=== PATIENT | female | born 1950 | race Caucasian/White ===

== ENCOUNTER 2019-08-11 17:38 | Inpatient (IN) | payer OTHER ==
[~2019-08-11] VITALS: Ht 154.9 cm; Wt 65.8 kg
[~2019-08-11 17:38] MED LIST: ASCO500 PO; ASPI81CH PO; ATOR10 PO; Amaryl2 MG PO; B Complex-Foli1 EACH PO; CALCIUM 600 +1 EAC7 PO; CEPH500 PO; Calcium-Magnes1 EAC5 PO; Coq-1030 MG PO; FURO40 PO; Ferrous Sulfat325 MG PO; GABA100 PO; LISI20 PO; MAGOXI400 PO; METF500 PO; METO25ER PO; MSM1000 MG PO; NITR.4SL SL; POTASSIUM GLUC500 MG PO; SODBIC650 PO; THERA-D2000 UNIT PO; TOCO400 PO
[2019-08-11 19:16] LABS: Albumin, Blood 2.1 g/dL (3.4-5.0); Albumin/Globulin Ratio 0.5 (0.8-1.8); Bilirubin, Total 0.6 mg/dL (0.1-1.0); Bun/Creatinine Ratio 6.8 (12.0-20.0); Calcium, Blood 6.1 mg/dL (8.5-10.1); Creatinine, Blood 3.38 mg/dL (0.40-1.00); Globulin, Blood 4.3 g/dL (2.2-4.0); Potassium, Blood 3.3 mmol/L (3.5-5.5); Total Protein, Blood 6.4 g/dL (6.4-8.2)
[2019-08-11 19:33] LABS: BASOPHILS ABSOLUTE AUTO 0.03 K/mm3 (0.00-0.23); BASOPHILS PERCENT AUTO 0 % (0-2); EOSINOPHILS ABSOLUTE AUTO 0.02 K/mm3 (0.00-0.68); EOSINOPHILS PERCENT AUTO 0 % (0-6); Hematocrit 32.5 % (33.0-51.0); Hemoglobin 10.7 g/dL (11.5-16.0); IMMATURE GRAN ABSOLUTE AUTO 0.06 K/mm3 (0.00-0.10); IMMATURE GRAN PERCENT AUTO 1 % (0-1); LYMPHOCYTES ABSOLUTE AUTO 1.63 K/mm3 (0.84-5.20); LYMPHOCYTES PERCENT AUTO 13 % (21-46); MONOCYTES ABSOLUTE AUTO 0.49 K/mm3 (0.16-1.47); MONOCYTES PERCENT AUTO 4 % (4-13); Mean Corpuscular HGB 28.6 pg (26.0-34.0); Mean Corpuscular HGB Conc 32.9 g/dL (31.5-36.5); Mean Corpuscular Volume 87 fL (80-100); Mean Platelet Volume 9.7 fL (9.1-12.4); NEUTROPHILS ABSOLUTE AUTO 10.73 K/mm3 (1.96-9.15); NEUTROPHILS PERCENT AUTO 83 % (41-73); Platelet Count 266 K/mm3 (150-400); RDW Coefficient Variation 14.7 % (11.7-14.2); RDW Standard Deviation 46.6 fL (35.1-46.3); Red Blood Cell Count 3.74 M/mm3 (3.80-5.20); White Blood Cell Count 12.96 K/mm3 (4.00-11.30)
[2019-08-11 19:40] LABS: Source, Urine Catheter
[2019-08-11 19:45] LABS: Bilirubin, Urine Neg (Neg); Blood, Urine 4+ (Neg); Glucose Qualitative, Urine 3+ (Neg); Ketones, Urine 1+ (Neg); Leukocyte Esterase, Urine 1+ (Neg); Nitrite, Urine Neg (Neg); Protein, Urine 3+ (Neg); Urobilinogen, Urine NORM (Normal)
[2019-08-11 20:02] LABS: Appearance, Urine Cloudy (Clear); Color, Urine Pale Yellow (P-Yellow)
[2019-08-11 20:03] LABS: Bacteria Many /hpf; Red Blood Cells, Urine 0-2 /hpf (0-2); Squamous Epithelial Cells Not Seen /hpf (Few)
[2019-08-11 20:15] LABS: Magnesium, Blood 1.2 mg/dL (1.6-2.4)
[2019-08-11 20:18] LABS: Phosphorus, Blood 2.1 mg/dL (2.5-4.9)
[2019-08-11 21:23] LABS: Automated BF RBC Count 0.002 M/mm3 (0-0)
--- NOTE | 2019-08-11 21:26 | NUR ---
PATIENT TRANSPORTED TO ER BY EMS WITH COMPLAINT OF ACUTE ABD PAIN AND DIARRHEA. NEPHROLOGY CONSULT FOR DR LEMA PLACED PATIENT CURRENTLY ON PERITONEAL DIALYSIS. EFFLUENT SAMPLE ORDERED BY DR LEMA FOR CULTURE, GRAM STAIN , CELL COUNT AND DIFFERENTIAL. PATIENT HAD RECENTLY BEEN AT [facility] UTILIZING [employer] EQUIPMENT A TRANSFER SET CHANGE WAS REQUIRED TO ALLOW USE OF [facility] EQUIPMENT HERE AT [facility]. PATIENT'S ABDOMEN VERY TENDER TO TOUCH. EFFLUENT OBTAINED WAS GROSSLY CLOUDY AND INDICATIVE OF SEVERE PERITONITIS. EFFLUENT SAMPLE WAS TRANSPORTED TO LAB FOR STAT CELL COUNT AND DIFFERENTIAL. DR LEMA TO RECIEVE RESULTS WHEN POSTED.
[2019-08-11 21:34] LABS: Body Fluid WBC Count 59440 /mm3 (0-999)
[2019-08-11 21:35] LABS: Appearance, Body Fluid Cloudy (Clear); Color, Body Fluid L Yellow (None-Yellow)
[2019-08-11 21:36] LABS: RBC Count, Body Fluid 2000 /mm3 (0-0)
[2019-08-11 21:43] LABS: Total Cell Count, Body Fluid 100
--- NOTE | 2019-08-12 00:16 | NUR ---
PATIENT TRANSFERED TO PCU ROOM 5. CYCLER SET UP FOR IN/ OUT FLUSHES. WHEN PRIME COMPLETE PATIENT AESEPTICALLY CONNECTED. PATIENT MONITORED FOR TOLEARANCE OF THERAPY AND NO ADVERSE ISSUES REPORTED. WHEN IN/OUT THERAPY COMPLETE, CYCLER SET UP STRUNG AND PRIMED FOR OVERNIGHT CCPD. PATIENT AGAIN CONNECTED AND THERAPY STARTED. EXIT SITE DRESSING INTACT AND SECURE SO DRESSING CHANGE DEFERRED UNTIL TOMORROW.
--- NOTE | 2019-08-12 00:48 | NUR ---
PATIENT ARRIVED TO PCU5 VIA GURNEY FROM ER, TRANSFERED TO BED VIA SLIDE SHEET, PATIENT COMPLAINED OF GENERALIZED PAIN WITH ANY MOVEMENT. PATIENT ALERT AND ORIENTED, CALL LIGHT WITHIN REACH AND USED APPROPRIATLY, NAUSEATED (MEDICATED PER EMAR/SEE EMAR). TRAY SETTER BACILIO IN ROOM AND HOOKING PATIENT UP TO PERITONEAL DIALYSIS, SKIN CDI, ATTENDS IN PLACE, BED LOW AND LOCKED. PATIENT ORIENTED TO ROOM, CALL LIGHT AND HOSPITAL POLICIES, ADMISSION COMPLETED
--- NOTE | 2019-08-12 04:24 | NUR ---
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 PATIENT VERY SENSETIVE STATING 'EVERYTHING HURTS ME RIGHT NOW, EVEN YOU BREATHING ON MY SKIN HURTS ME.' MD JUDGE NOTIFIED, ORDERS RECIEVED AND FAXED TO PHARMACY, PAIN MEDICATION GIVEN PER ORDERS (SEE EMAR). ALL OTHER VSS, CALL LIGHT WITHIN REACH, BED LOW AND LOCKED, PATIENT ON CONTINUOUS DIALYSIS.
[2019-08-12 04:42] LABS: Hematocrit 30.5 % (33.0-51.0); Hemoglobin 9.7 g/dL (11.5-16.0)
[2019-08-12 04:58] LABS: Albumin, Blood 1.7 g/dL (3.4-5.0); Anion Gap 10 mmol/L (6-16); Blood Urea Nitrogen 19 mg/dL (8-24); Bun/Creatinine Ratio 6.9 (12.0-20.0); CO2, Blood 23 mmol/L (21-32); Calcium, Blood 6.1 mg/dL (8.5-10.1); Chloride, Blood 102 mmol/L (98-108); Creatinine, Blood 2.74 mg/dL (0.40-1.00); Glomerular Filtration Rate 18 (60-); Glucose, Blood 409 mg/dL (70-99); Magnesium, Blood 1.8 mg/dL (1.6-2.4); Phosphorus, Blood 2.1 mg/dL (2.5-4.9); Potassium, Blood 2.9 mmol/L (3.5-5.5); Sodium, Blood 135 mmol/L (136-145)
--- NOTE | 2019-08-12 08:12 | NUR ---
PATIENT AWAKE , ALERT AND ORIENTED THIS AM. OVERNIGHT CCPD COMPLETE. LAST FILL WITH IP ANTIBIOTICS IN FOR MINIMUM 6 HOUR DWELL. PATIENT AESEPTICALLU DISCONNECTED AND CAPPED WITH NEW MINI-CAP. CATHETER SECURED FOR THE DAY. PATIENT REPORT DECREASED ABDOMINAL PAIN THIS MORNING. EFFLUENT SIGNIFICANTLY DECREASED CLOUDINESS, HOWEVER, NOT YET CLEAR. NO FIBRIN NOTED.
--- NOTE | 2019-08-12 12:23 | NUR ---
Patient is lying in bed and alert. Patient has , Heath, and a friend present in the room. They all make it clear up front that they are L.D.S. and have one of their own people coming to say a blessing over the patient. Patient tells me about her many medical issues, about her frustrations with her limitations following her stroke and about her current emotional struggles. Patient is very tearful. I listen empathically, reinforce helpful attitudes and practices, highlight patient's strength and ability to overcome and provide a calming presence and emotional support. I will continue to remain available to patient and family.
--- NOTE | 2019-08-12 18:42 | NUR ---
SHIFT SUMMARY PT A&O; CALM AND COOPERATIVE WITH CARE. PT RESTING IN BED DURING SHIFT; UP WITH ONE PERSON ASSIST TO BSC. TREMORS NOTED; PT STATES THAT NORMAL FOR HER. PT REPORTS "ALL OVER" PAIN, MEDCIATED x2 WITH TYLENOL WITH POSITIVE RESULTS. PT REPORTS NAUSEA; NO EMESIS NOTED; MEDICATED x1 WITH ZOFRAN. PT DENIES SOB, SPO2 >90%. PT VOIDING INTO BSC; NO BM T/O SHIFT. PT RECEIVING ANTIBIOTICS AND POTASSIUM AND MAGNENSIUM REPLACEMENTS. PERITONEAL DIALYSIS SET UP BY BLAINE RIBERA. VSS. NO OTHER ACUTE CHANGES NOTED DURING SHIFT. WILL CONTINUE TO MONITOR UNTIL REPORT GIVEN TO ONCOMING RN.
--- NOTE | 2019-08-12 19:15 | NUR ---
PATIENT AWAKE AND ALERT UPON ENTERING ROOM. CONTINUES TO HAVE COMPLAINT OF PATIENT WITH COMPLAINT OF GENERALIZED DISCOMFORT. PERITONEAL FLUID STILL CLOUDY. ABDOMEN HANDLE MAKER TO TOUCH. DUE TO MINIMAL UF LAST NIGHT RX CHANGE FRON 1.5% TO 2.5% DIANEAL BY DR LEMA. LAST FILL WITH ANTIBIOTICS IN 2L 1.5%. 1000U HEPARIN PER LITER ADDED TO ALL DIANEAL CYCLER STRUNG, PRIMED AND PROGRAMMED PER RX. WHEN PRIME COMPLETE OVERNIGHT CCPD STARTED. EFFLUENT SAMPLE OBTAINED FROM INITIAL DRAIN AND TRANSPORTED TO LAB. EXIT SITE CARE DONE. SITE CLEANSED WITH EXCEPT AND NEW STERILE DRESSING APPLIED. CATHETER SECURED IN PT PD BELT. PCU STAFF AWARE OF OVERNIGHT CCPD IN PROGRESS.
[2019-08-12 19:41] LABS: Body Fluid WBC Count 14210 /mm3 (0-999)
[2019-08-12 19:59] LABS: RBC Count, Body Fluid 782 /mm3 (0-0)
[2019-08-12 20:42] LABS: Color, Body Fluid L Yellow (None-Yellow); Total Cell Count, Body Fluid 100
[2019-08-12 20:43] LABS: Appearance, Body Fluid Cloudy (Clear)
[2019-08-13 04:14] LABS: BASOPHILS ABSOLUTE AUTO 0.02 K/mm3 (0.00-0.23); BASOPHILS PERCENT AUTO 0 % (0-2); Hematocrit 29.2 % (33.0-51.0); Hemoglobin 9.5 g/dL (11.5-16.0); LYMPHOCYTES ABSOLUTE AUTO 1.26 K/mm3 (0.84-5.20); LYMPHOCYTES PERCENT AUTO 26 % (21-46); MONOCYTES ABSOLUTE AUTO 0.22 K/mm3 (0.16-1.47); MONOCYTES PERCENT AUTO 5 % (4-13); Mean Corpuscular HGB 28.2 pg (26.0-34.0); Mean Corpuscular HGB Conc 32.5 g/dL (31.5-36.5); Mean Corpuscular Volume 87 fL (80-100); Mean Platelet Volume 9.8 fL (9.1-12.4); Platelet Count 294 K/mm3 (150-400); RDW Coefficient Variation 14.8 % (11.7-14.2); RDW Standard Deviation 47.4 fL (35.1-46.3); Red Blood Cell Count 3.37 M/mm3 (3.80-5.20); White Blood Cell Count 4.86 K/mm3 (4.00-11.30)
[2019-08-13 04:19] LABS: EOSINOPHILS ABSOLUTE AUTO 0.17 K/mm3 (0.00-0.68); EOSINOPHILS PERCENT AUTO 4 % (0-6); IMMATURE GRAN ABSOLUTE AUTO 0.01 K/mm3 (0.00-0.10); IMMATURE GRAN PERCENT AUTO 0 % (0-1); NEUTROPHILS ABSOLUTE AUTO 3.18 K/mm3 (1.96-9.15); NEUTROPHILS PERCENT AUTO 66 % (41-73)
[2019-08-13 04:33] LABS: Albumin, Blood 1.4 g/dL (3.4-5.0); Anion Gap 8 mmol/L (6-16); Blood Urea Nitrogen 13 mg/dL (8-24); Bun/Creatinine Ratio 5.5 (12.0-20.0); CO2, Blood 26 mmol/L (21-32); Calcium, Blood 6.5 mg/dL (8.5-10.1); Chloride, Blood 101 mmol/L (98-108); Creatinine, Blood 2.36 mg/dL (0.40-1.00); Glomerular Filtration Rate 22 (60-); Glucose, Blood 352 mg/dL (70-99); Magnesium, Blood 1.5 mg/dL (1.6-2.4); Potassium, Blood 2.7 mmol/L (3.5-5.5); Sodium, Blood 135 mmol/L (136-145); Vancomycin, Random 10.9 ug/mL
--- NOTE | 2019-08-13 06:19 | NUR ---
SHIFT SUMMARY NO ACUTE CHANGES NOTED. PT RECIEVED PERITONEAL DIALYSIS THROUGH THE NIGHT. SHE ICONTINUES TO C/O GENERALIZED,LOWER BACK PAIN, TYLENOL AND 1 DOSE 12.5 MCG IV FENTANYL WAS GIVEN PER PT REQUEST. KPAD WAS SET UP FOR THE PT TO USE TOLERATED. VSS,ON ROOM AIR, 1 ASSIST TO THE BSC. IN TO ASSESS PT THIS AM. CALL LIGHT IN REACH. [facility]
--- NOTE | 2019-08-13 08:30 | NUR ---
DIALYSIS-PD TOOK SUPPLIES TO PT'S ROOM. ID [id number], UF [id number]. BAG CLOUDY. PT VERY TENDER TO TOUCH. DC'ED TX PER PROTOCAL. SHE HAD THE LINES WRAPPED AROUND HR LEG. CONNECTED TUBE TO HR PD BINDER.
--- NOTE | 2019-08-13 20:05 | NUR ---
DIALYSIS-PD TOOK SOLUTION TO THE PHARMACY FOR HEPARIN AND ANTIBIOTICS. PT ALITTLE CONFUSED. MOVING AROUND ALOT IN BED. UP AND DOWN. SAYS SHE IS NAUSEATED. CONNECTED TO PD TX AT 1845. RECIEVING ANTIBIOTICS IN LAST FILL. WENT BACK TO THE ROOM FOR LOW DRAIN VOLUME. CLEARED. SPOKE TO RN. SITE CLEAR.
--- NOTE | 2019-08-13 21:02 | NUR ---
SHIFT SUMMARY PT A&Ox4. CALM AND COOPERATIVE WITH CARE. PT RESTING IN BED DURING SHIFT, UP TO BSC WITH 1 PERSON ASSIST. PT REPORT GENERALIZED PAIN AND RIGHT SIDED CHEST PAIN WITH INSPIRATION THIS AM, MEDICATED WITH TYLENOL x1 WITH POSITIVE RESULTS. DURING OT 0925, PT LEFT ARM FLACCID AND "FLOPPING" AROUND, THIS RN TO ROOM FOR ASSESSMENT, LEFT HAND NOT ABLE TO ENVIRONMENTAL LABORATORY TECHNICIAN INITIAL BUT WITHIN 5 MINUTES PT ABLE TO ENVIRONMENTAL LABORATORY TECHNICIAN, WEAKER THEN INITIAL ASSESSMENT @ 0830; NO OTHER CHANGES NOTE; NOTIIFED DR HAYS OF NEURO CHANGE AND RIGHT SIDED CHEST PAIN, DR PATINO PLACED NEW ORDERS FOR CT, TROPONINS AND EKG; ALL COMPLETED THIS AM. PT RECEIVING POTASSIUM CHLORIDE, MAGNESIUM SULFATE THIS AM AT DECREASED RATE DUE TO PT NOT TOLERATING. DR ASHFORD CALLED REGARDINF RESULTS OF ABD XRAY; CLARIFIED ORDER FOR POTASSIUM PHOSPHATE; NEW ORDERS TO CONTINUE TO GIVE. DR PATINO NOTIFIED OF ABD XRAY RESULT AND NEW ORDERS ENTERED FOR MRCP. PT REPORTS NAUSEA WITH EMESIS, APPROX 100CC OUT THIS SHIFT, MEDICATED WITH ZOFRAN x2. VSS. NO OTHER ACUTE CHANGES NOTED DURING SHIFT. REPORT GIVEN TO ONCOMING RN.
--- NOTE | 2019-08-13 22:00 | NUR ---
ASSUMED CARE Pt presents lying in bed with family at bedside, pt is alert and oriented, able to make needs known, moves all extremities independantly. Pt with right sided deficit d/t cva reported 1 wk ago. PD in process upon arrival. Karly, coal inspector at bedside with PD in place. Pt SBA to BSC. C/o R hip pain, heating pad placed, and egg crate on bed. See shift assessment for detailed assessment.
[2019-08-14 04:23] LABS: BASOPHILS ABSOLUTE AUTO 0.01 K/mm3 (0.00-0.23); BASOPHILS PERCENT AUTO 0 % (0-2); EOSINOPHILS ABSOLUTE AUTO 0.26 K/mm3 (0.00-0.68); EOSINOPHILS PERCENT AUTO 4 % (0-6); Hematocrit 29.8 % (33.0-51.0); Hemoglobin 9.6 g/dL (11.5-16.0); IMMATURE GRAN ABSOLUTE AUTO 0.02 K/mm3 (0.00-0.10); IMMATURE GRAN PERCENT AUTO 0 % (0-1); LYMPHOCYTES ABSOLUTE AUTO 2.37 K/mm3 (0.84-5.20); LYMPHOCYTES PERCENT AUTO 38 % (21-46); MONOCYTES ABSOLUTE AUTO 0.39 K/mm3 (0.16-1.47); MONOCYTES PERCENT AUTO 6 % (4-13); Mean Corpuscular HGB 27.9 pg (26.0-34.0); Mean Corpuscular HGB Conc 32.2 g/dL (31.5-36.5); Mean Corpuscular Volume 87 fL (80-100); Mean Platelet Volume 9.9 fL (9.1-12.4); NEUTROPHILS ABSOLUTE AUTO 3.12 K/mm3 (1.96-9.15); NEUTROPHILS PERCENT AUTO 51 % (41-73); Platelet Count 340 K/mm3 (150-400); RDW Coefficient Variation 14.8 % (11.7-14.2); RDW Standard Deviation 47.2 fL (35.1-46.3); Red Blood Cell Count 3.44 M/mm3 (3.80-5.20); White Blood Cell Count 6.17 K/mm3 (4.00-11.30)
[2019-08-14 04:42] LABS: Albumin, Blood 1.4 g/dL (3.4-5.0); Amylase, Blood 19 U/L (25-115); Anion Gap 6 mmol/L (6-16); Blood Urea Nitrogen 11 mg/dL (8-24); Bun/Creatinine Ratio 4.4 (12.0-20.0); CO2, Blood 28 mmol/L (21-32); Chloride, Blood 102 mmol/L (98-108); Glomerular Filtration Rate 20 (60-); Glucose, Blood 295 mg/dL (70-99); Magnesium, Blood 1.6 mg/dL (1.6-2.4); Phosphorus, Blood 2.2 mg/dL (2.5-4.9); Potassium, Blood 2.7 mmol/L (3.5-5.5); Sodium, Blood 136 mmol/L (136-145)
--- NOTE | 2019-08-14 05:33 | NUR ---
POTASSIUM 2.7; provider called, orders for KCl 40 meq IV x1
--- NOTE | 2019-08-14 07:00 | NUR ---
SHIFT SUMMARY Pt with restless night. Complaints of pain to the right hip with little relief with current pain medication; attempted egg crate and heating pad. Pt able to sleep approx 4 hours overnight. VSS. Potassium in process of replacement at this time. Pt alert and oriented but lethargic upon intitially waking. PD completed last night, abd soft, non tender. No BM overnight. Pt up with 1 to BSC for voiding, oliguria. Dr. Hernandez in this am with pt. Orders recieved. Per dr. Hernandez, discharge will likely be early next week.
--- NOTE | 2019-08-14 07:50 | NUR ---
AM NOTE... ASSUMED CARE OF PT APROX 0700, PT IS A&Ox4. PT WAS ADMITTED FOR PERITONITIS R/T PD. PT HAD PD TREATMENT DURING NOC SHIFT. PT STATES HER ABD "FEELS BETTER" MILD DISTENTION AND PAIN TO PALP, ABD IS SOFT IN ALL QUADRANTS. PT'S VS STABLE AT THIS TIME. PT DENIES CHEST PAIN/PRESSURE AT THIS TIME. PT C/O OF "SOME NAUSEA WITH EATING." PT HAS 1+ EDEMA TO HER BLE. PT IS ST IN THE 110'S PER OFFENSIVE COORDINATOR. L/S DIM T/O PT IS ON RA WITH O2 SATS >92%. PD FLUID LOOKS YELLOW AND SLIGHTLY CLOUDY, PER DIALYSIS NURSE THE CLOUDINESS HAS IMPROVED SINCE YESTERDAY. CALL LIGHT IN REACH, WILL CONTINUE TO MONITOR.
--- NOTE | 2019-08-14 08:56 | NUR ---
DIALYSIS-PD TOOK SUPPLIES INTO ROOM TO DC PT FROM PD TX. PT SEATING UP ON THE SIDE OF BED. LOOKS AND TALKING BETTER. SHE SEEMS MORE ORIENTED TODAY. CLEANED HER SITE HAS A VERY SMALL SCAB AT THE BASE OF HER TUBE. CLEANED, ANTIBIOTIC OINTMENT APPLIED AND REDRESSED. DOESN'T PLAN TO SHOWER TODAY. TX DC'ED PER PROTOCAL. ID [id number] ML. UF [id number] ML. BAG STILL ALITTLE CLOUDY. DR ASHFORD ORDERED THE SAME YESTERDAYS ORDERS. CONTINUING WITH ANTIBIOTICS.
[2019-08-14] MEDS ORDERED: SPIR25 PO (15:13)
--- NOTE | 2019-08-14 21:21 | NUR ---
DIALYSIS-PD TOOK SUPPLIES TO PT'S NEW ROOM 303. SETUP MACHINE. AT 2111 CONNECTED PT TO TX PER PROTOCAL. TALKED PT'S RN AND Sebastián PORTILLO,RN AND ALARMS. GAVE THEM MY CELL #. PT IS STILL RECIEVING ANTIBIOTICS IN LAST FILL.
--- NOTE | 2019-08-15 00:39 | NUR ---
PHYSICIAN COMMUNICATION CONTACTED THE VIDEO JOURNALIST PHYSICIAN AT 0002 TO INFORM HER THAT HER 30 UNITS OF LANTUS HAD BEEN HELD AT 2100 DUE TO HER BLOOD SUGAR BEING 80. I INFORMED HER THAT THE PATIENT WOULD BE HAVING AN ULTRASOUND IN THE MORNING FOR WHICH THEY WANT HER STOMACH EMPTY. BIENVENIDO SAID SHE WAS OKAY WITH IT BEING HELD AND POTENTIALLY STARTING IT UP AT HALF DOSE THE NEXT DAY.
[2019-08-15 05:44] LABS: BASOPHILS ABSOLUTE AUTO 0.02 K/mm3 (0.00-0.23); BASOPHILS PERCENT AUTO 0 % (0-2); EOSINOPHILS ABSOLUTE AUTO 0.36 K/mm3 (0.00-0.68); EOSINOPHILS PERCENT AUTO 6 % (0-6); Hematocrit 30.7 % (33.0-51.0); Hemoglobin 9.7 g/dL (11.5-16.0); IMMATURE GRAN ABSOLUTE AUTO 0.01 K/mm3 (0.00-0.10); IMMATURE GRAN PERCENT AUTO 0 % (0-1); LYMPHOCYTES ABSOLUTE AUTO 2.38 K/mm3 (0.84-5.20); LYMPHOCYTES PERCENT AUTO 40 % (21-46); MONOCYTES PERCENT AUTO 7 % (4-13); Mean Corpuscular HGB 28.5 pg (26.0-34.0); Mean Corpuscular HGB Conc 31.6 g/dL (31.5-36.5); Mean Platelet Volume 9.8 fL (9.1-12.4); NEUTROPHILS ABSOLUTE AUTO 2.82 K/mm3 (1.96-9.15); NEUTROPHILS PERCENT AUTO 47 % (41-73); Platelet Count 320 K/mm3 (150-400); RDW Coefficient Variation 15.2 % (11.7-14.2); RDW Standard Deviation 50.4 fL (35.1-46.3); White Blood Cell Count 5.99 K/mm3 (4.00-11.30)
[2019-08-15 05:49] LABS: Mean Corpuscular Volume 90 fL (80-100)
[2019-08-15 05:52] LABS: Albumin, Blood 1.3 g/dL (3.4-5.0); Anion Gap 6 mmol/L (6-16); Blood Urea Nitrogen 11 mg/dL (8-24); Bun/Creatinine Ratio 4.3 (12.0-20.0); CO2, Blood 25 mmol/L (21-32); Calcium, Blood 6.8 mg/dL (8.5-10.1); Chloride, Blood 105 mmol/L (98-108); Creatinine, Blood 2.58 mg/dL (0.40-1.00); Glomerular Filtration Rate 20 (60-); Glucose, Blood 407 mg/dL (70-99); Magnesium, Blood 1.5 mg/dL (1.6-2.4); Phosphorus, Blood 2.5 mg/dL (2.5-4.9); Potassium, Blood 3.1 mmol/L (3.5-5.5); Sodium, Blood 136 mmol/L (136-145)
--- NOTE | 2019-08-15 07:12 | NUR ---
SHIFT SUMMARY PATIENT RECEIVED PEROTINEAL DIALYSIS OVERNIGHT. SLEPT WELL WITH MINIMAL NEEDS. IV AND POWERGLIDE PATENT AND FLUSHED. BED IN LOWEST POSITION WITH WHEELS LOCKED. CALL LIGHT WITHIN REACH. REPORT GIVEN TO ONCOMING RN.
--- NOTE | 2019-08-15 09:12 | NUR ---
DIALYSIS-PD WENT INTO ROOM TO DC TX. MACHINE IN ALARM STATE. SAID UF LOW. 5 OF 5 DRAIN INCOMPLETE. PT HAD PUSHED THE STOP BUTTON TO QUIETEN AND DID NOT REPORT IT TO THE RN. PUT IN BYPASS AND STARTED LAST FILL. ASKED RN TO NOTIFY ME WHEN COMPLETED. AT 0900 DC'ED TX PER PROTOCAL. UF [id number]. ID [id number]. DR ASHFORD WANTS TO ONLY USE EDU WONG. DC'ED RAYNA.
--- NOTE | 2019-08-15 15:32 | NUR ---
SHIFT SUMMARY PT IS A/O X 4 BUT DOES APPEAR TO BE MILDLY CONFUSED AT TIMES AND HAS GENERAL MALAISE. SHE DID C/O OF NAUSEA X 1 AND MEDS WERE GIVEN ORDERED AND REPORTED TO BE EFFECTIVE. PERITONEAL DIALYSIS WAS COMPLETED AT THE BEDSIDE THIS MORNING AND THE DIALYSIS NURSE CAME AND DISCONNECTED THE MACHINE AND PER DR ASHFORD SHE IS SCHEDULED TO HAVE IT AGAIN TONIGHT. ABDOMINAL ULTRA SOUND WAS COMPLETED THIS MORNING ORDERED. IV FLUIDS/MEDS INFUSED VIA POWERGLIDE TO RUE, THE POWERGLIDE IS POSITIONAL AND THE PT NEEDS REMINDERS TO HELP KEEP HER ARM STRAIGHT FOR THE INFUSION BUT BOTH LUMENS FLUSH WITH NO RESISTANCE. DR TELLO ORDERED A CT WITH CONTRAST THIS AFTERNOON WHICH WAS COMPLETED AND THE DOCTOR CAME TO TALK ABOUT THE RESULTS AT THE BEDSIDE WITH THE PT. PT SON IS AT THE BEDSIDE NOW. PT WORKED WITH BOTH THERAPIES TODAY. PT USES THE BEDSIDE COMMODE FOR TOILETING AND HAS BEEN CONT TODAY. PT IS ABLE TO MAKE HER NEEDS KNOWN AND CALLS FOR HELP WHEN NEEDED.
--- NOTE | 2019-08-15 19:25 | NUR ---
PATIENT RESTING IN BED WITH PERITONEAL DIALYSIS RUNNING. SHE IS AOX4, DENIES PAIN AT THIS TIME. CHECKED DIALYSIS SITE AND THE PATIENT SAYS ITS TENDER TO TOUCH. RESPIRATIONS EVEN AND UNLABORED. MO DISTRESS NOTED. BED LOW AND LOCKED AND CALL VELIZ WITHIN REACH.
--- NOTE | 2019-08-15 20:31 | NUR ---
DIALYSIS-PD TOOK SUPPLIES TO PHARMACY FOR MED FILL. TOOK SUPPLIES UP TO PT'S ROOM. SHE WAS EATING DINNER. SET UP THE MACHINE. SPOKE TO THE RN. CONNECTED PT TO HER TX. AFTER SEEING ANOTHER PT IN THE ER . I WENT BACK AND MADE SURE THE NOC RN KNEW THAT THE PT WOULD STOP THE MACHINE WHEN IT ALARMS. WALKED HER THROUGH SEVERAL ALARMS AND GAVE HER MY CELL NUMBER.
[2019-08-16 05:33] LABS: BASOPHILS ABSOLUTE AUTO 0.02 K/mm3 (0.00-0.23); BASOPHILS PERCENT AUTO 0 % (0-2); EOSINOPHILS ABSOLUTE AUTO 0.37 K/mm3 (0.00-0.68); EOSINOPHILS PERCENT AUTO 6 % (0-6); Hematocrit 29.4 % (33.0-51.0); Hemoglobin 9.4 g/dL (11.5-16.0); IMMATURE GRAN ABSOLUTE AUTO 0.01 K/mm3 (0.00-0.10); IMMATURE GRAN PERCENT AUTO 0 % (0-1); LYMPHOCYTES ABSOLUTE AUTO 2.35 K/mm3 (0.84-5.20); LYMPHOCYTES PERCENT AUTO 39 % (21-46); MONOCYTES ABSOLUTE AUTO 0.44 K/mm3 (0.16-1.47); MONOCYTES PERCENT AUTO 7 % (4-13); Mean Corpuscular HGB 28.1 pg (26.0-34.0); Mean Corpuscular Volume 88 fL (80-100); Mean Platelet Volume 9.6 fL (9.1-12.4); NEUTROPHILS ABSOLUTE AUTO 2.81 K/mm3 (1.96-9.15); NEUTROPHILS PERCENT AUTO 47 % (41-73); Platelet Count 347 K/mm3 (150-400); RDW Coefficient Variation 15.2 % (11.7-14.2); RDW Standard Deviation 48.8 fL (35.1-46.3); Red Blood Cell Count 3.34 M/mm3 (3.80-5.20)
--- NOTE | 2019-08-16 05:34 | NUR ---
EOS: PATIENT RECEIVING PERITONEAL DIALYSIS THIS SHIFT. SPOKE WITH COURT PERLA SALES DEPARTMENT CLERK AT THE BEGINNING OF THE SHIFT. PT OOB TO BSC NEEDED WITH X1 ASSIST. PT HAS BEEN PLEASANT AND COOPERATIVE THO SHE MAY BE APPEAR SOMEWHAT XPRESSIONLESS. .
[2019-08-16 05:59] LABS: Albumin, Blood 1.3 g/dL (3.4-5.0); Anion Gap 7 mmol/L (6-16); Blood Urea Nitrogen 8 mg/dL (8-24); Bun/Creatinine Ratio 3.2 (12.0-20.0); CO2, Blood 26 mmol/L (21-32); Chloride, Blood 103 mmol/L (98-108); Creatinine, Blood 2.53 mg/dL (0.40-1.00); Glomerular Filtration Rate 20 (60-); Glucose, Blood 407 mg/dL (70-99); Magnesium, Blood 1.6 mg/dL (1.6-2.4); Phosphorus, Blood 2.1 mg/dL (2.5-4.9); Potassium, Blood 3.3 mmol/L (3.5-5.5); Sodium, Blood 136 mmol/L (136-145)
--- NOTE | 2019-08-16 07:38 | NUR ---
PATIENT IN BED, AWAKE, ORIENTEDAND IN NO APPARENT OR REPORTED DISTRESS. PATIENT VOICING DESIRE TO GO HOME. EFLUENT ONLY VERY SLIGHTLY CLOUDY THIS MORNING. NO ABD PAIN REPORTED. PATIENT AESEPTICALLY DISCONNECTED AND CATHETER CAPPED WITH NEW MINI-CAP. CATHETER SECURED IN PT'S PD BELT. CYCLER STRIPPED AND CLEANED. DR ASHFORD CONSULTED FOR ORDERS / PLAN OF CARE.
--- NOTE | 2019-08-16 18:02 | NUR ---
PATIENT AWAKE / ALERT / ORIENTED THIS EVENING BUT WITH RENEWED COMPLAINT OF ABDOMINAL PAIN. PATIENT TAKEN TO IMAGING FOR ABD XRAY WHILE DIALYSIS NURSE SETTING UP CYCLER FOR OVERNIGHT CCPD. MACHINE PROGRAMMED PER RX. EFFLUENT SAMPLE OBTAINED FOR CELL COUNT. PATIENT MONITORED T/O INITIAL DRAIN AND FILL #1 TO ASSESS TOLERANCE OF THERAPY. NO NEW COMPLAINTS. EXIT SITE CARE DONE. STILL SOME REDNESS NOTED AT EXIT. NEW STERILE DRESSING APPLIED WITH ONE STRAIN RELIEF TO MINIMIZE "SAWING" MOTION. MED FLOOR STAFF AWARE OF OVERNIGHT THERAPY IN PROGRESS.
[2019-08-16 18:05] LABS: Automated BF WBC Count 0.283 K/mm3 (0-999); Body Fluid WBC Count 283 /mm3 (0-999)
[2019-08-16 18:37] LABS: RBC Count, Body Fluid 3 /mm3 (0-0)
[2019-08-16 19:15] LABS: Total Cell Count, Body Fluid 100
[2019-08-16 19:16] LABS: Color, Body Fluid No color (None-Yellow)
[2019-08-16 19:17] LABS: Appearance, Body Fluid Clear (Clear)
--- NOTE | 2019-08-16 19:32 | NUR ---
SHIFT SUMMARY PT AXO, COOPERATIVE WITH CARE THOUGH IRRITABLE. PT COMPLAINED OF PAIN, MEDICATED PER EMAR. PT CONTINUED TO COMPLAIN OF PAIN 04/24. DR TELLO NOTIFIED AND IN ROOM TO ASSESS PT. PT HAD BM AT THAT TIME. SHE ALSO BEGAN HAVING LEFT UPPER EXTREMITY WEAKNESS. PUPILS WERE EQUIL AND REACTIVE TO LIGHT. SILK SCREEN PAINTER ON L HAND WAS STRONG BUT DELAYED COMPARED TO RUE. NEW ORDERS INTIATED. VSS. BED IN LOW POSITION, CALL LIGHT WITHIN REACH. SEE IMAGING.
--- NOTE | 2019-08-17 00:21 | NUR ---
pt vomited her bedtime pills back up; will notify on-call hospitalist with next call; gave IV Zofran per emar. meds were visible in what looked like phlem and water, approx 30 ml
[2019-08-17 04:55] LABS: BASOPHILS ABSOLUTE AUTO 0.02 K/mm3 (0.00-0.23); BASOPHILS PERCENT AUTO 0 % (0-2); EOSINOPHILS PERCENT AUTO 1 % (0-6); Hematocrit 36.1 % (33.0-51.0); Hemoglobin 11.5 g/dL (11.5-16.0); IMMATURE GRAN ABSOLUTE AUTO 0.03 K/mm3 (0.00-0.10); IMMATURE GRAN PERCENT AUTO 0 % (0-1); LYMPHOCYTES ABSOLUTE AUTO 2.47 K/mm3 (0.84-5.20); LYMPHOCYTES PERCENT AUTO 20 % (21-46); MONOCYTES ABSOLUTE AUTO 0.65 K/mm3 (0.16-1.47); MONOCYTES PERCENT AUTO 5 % (4-13); Mean Corpuscular HGB 28.4 pg (26.0-34.0); Mean Corpuscular HGB Conc 31.9 g/dL (31.5-36.5); Mean Corpuscular Volume 89 fL (80-100); Mean Platelet Volume 9.8 fL (9.1-12.4); NEUTROPHILS ABSOLUTE AUTO 9.19 K/mm3 (1.96-9.15); NEUTROPHILS PERCENT AUTO 74 % (41-73); Platelet Count 452 K/mm3 (150-400); RDW Coefficient Variation 15.3 % (11.7-14.2); Red Blood Cell Count 4.05 M/mm3 (3.80-5.20); White Blood Cell Count 12.46 K/mm3 (4.00-11.30)
[2019-08-17 05:34] LABS: Albumin, Blood 1.6 g/dL (3.4-5.0); Anion Gap 11 mmol/L (6-16); Blood Urea Nitrogen 10 mg/dL (8-24); Bun/Creatinine Ratio 3.5 (12.0-20.0); CO2, Blood 23 mmol/L (21-32); Calcium, Blood 7.5 mg/dL (8.5-10.1); Chloride, Blood 101 mmol/L (98-108); Creatinine, Blood 2.87 mg/dL (0.40-1.00); Glomerular Filtration Rate 17 (60-); Glucose, Blood 431 mg/dL (70-99); Phosphorus, Blood 2.9 mg/dL (2.5-4.9); Sodium, Blood 135 mmol/L (136-145)
--- NOTE | 2019-08-17 07:37 | NUR ---
EOS: PATIENT RECEVED AN EXTRA DOSE OF ZAOFRAN THIS MORNING. HER NAUSEA SEEMS POSITIONAL. PATINT CONTINUES TO VOMIT SMALL AMOUNTS OF FLUIDS. IS AWARE.
--- NOTE | 2019-08-17 07:45 | NUR ---
PATIENT AWAKE / ALERT AND ORIENTED THIS AM. PT REPORTS SLEEPING POORLY AND REQUEST PAIN MEDICATION FOR LINGERING ABDOMINAL PAIN. CELL COUNT ON PD EFLUENT OBTAINED LAST NIGHT SHOWS MARKED CLEARING OF BACTERIAL COLINIZATION OF PERITONEAUM. EFFLUENT CLEAR / COLE THIS AM. OVERNIGHT CCPD COMPLETE. PATIENT AESEPTICALLY DISCONNECTED AND NEW MINI-CAP INSTALLED ON CATHETER. CYCLER STRIPPED AND CLEANED. DR ASHFORD CONSULTED FOR NEW ORDERS / PLAN OF CARE.
--- NOTE | 2019-08-17 17:40 | NUR ---
PATIENT AWAKE , ALERT AND ORIENTED THIS AFTERNOON. SITTING IN RECLINER CHAIR AT BEDSIDE. PT REPORTS NO APPETITE FOR SOLID FOOD AND CONTINUES WITH SOME NAUSEA AND OCCASSIONAL RETCHING. NO OBSERVED EMESIS WHILE THIS NURSE PRESENT IN ROOM. REQUEST FOR ICE WATER PROVIDED. CYCLER SET UP, PRIMED AND PROGRAMMED PER RX. PATIENT AESEPTICALLY CONNECTED AND THERAPY STARTED. INITIAL DRAIN AND FILL #1 OBSERVED TO ASSESS PATIENT TOLERANCE. NO ADDITIONAL DISCOMFORT REPORTED. EXIT SITE CARE DONE. REDNESS IMPROVED. ABD SUGAR CANE FARM MANAGER TO TOUCH. NEW STERLE DRESSING APPLIED WITH ONE STRAIN RELIEF. MED FLOOR STAFF AWARE OF OVERNIGHT CCPD THERAPY IN PROGRESS.
--- NOTE | 2019-08-17 19:18 | NUR ---
SHIFT SUMMARY PT AXO, COOPERATIVE WITH CARE. PT MEDICATED FOR PAIN PER EMAR. PT CONTINUED TO COMPLAIN OF PAIN BUT APPEARED TO REST COMFORTABLY AT TIMES THROUGHOUT THE SHIFT. PT ALSO COMPLAINED OF NV, EMESIS X3 THIS SHIFT. IMPROVED WITH REGLAN. PT CONTINUES TO HAVE POOR APPETITE. BED IN LOW POSITION, CALL LIGHT WITHIN REACH. PT UP TO RECLINER THROUGHOUT THE SHIFT. IV PATENT AND INFUSING PER EMAR.
--- NOTE | 2019-08-18 02:19 | NUR ---
ASSUMED CARE OF PT TONIGHT. PT SLEEPING WHEN UNDISTURBED. RECEIVING PERITONEAL DIALYSIS. IV FLUIDS/PROTONIX INFUSING.
[2019-08-18 05:39] LABS: BASOPHILS ABSOLUTE AUTO 0.04 K/mm3 (0.00-0.23); BASOPHILS PERCENT AUTO 0 % (0-2); EOSINOPHILS ABSOLUTE AUTO 0.51 K/mm3 (0.00-0.68); EOSINOPHILS PERCENT AUTO 3 % (0-6); Hematocrit 31.3 % (33.0-51.0); Hemoglobin 10.1 g/dL (11.5-16.0); IMMATURE GRAN ABSOLUTE AUTO 0.09 K/mm3 (0.00-0.10); IMMATURE GRAN PERCENT AUTO 1 % (0-1); LYMPHOCYTES ABSOLUTE AUTO 3.08 K/mm3 (0.84-5.20); LYMPHOCYTES PERCENT AUTO 19 % (21-46); MONOCYTES ABSOLUTE AUTO 0.98 K/mm3 (0.16-1.47); MONOCYTES PERCENT AUTO 6 % (4-13); Mean Corpuscular HGB 28.7 pg (26.0-34.0); Mean Corpuscular HGB Conc 32.3 g/dL (31.5-36.5); Mean Corpuscular Volume 89 fL (80-100); Mean Platelet Volume 9.6 fL (9.1-12.4); NEUTROPHILS ABSOLUTE AUTO 11.33 K/mm3 (1.96-9.15); NEUTROPHILS PERCENT AUTO 71 % (41-73); Platelet Count 370 K/mm3 (150-400); RDW Coefficient Variation 15.5 % (11.7-14.2); RDW Standard Deviation 49.5 fL (35.1-46.3); Red Blood Cell Count 3.52 M/mm3 (3.80-5.20); White Blood Cell Count 16.03 K/mm3 (4.00-11.30)
[2019-08-18 05:59] LABS: Albumin, Blood 1.4 g/dL (3.4-5.0); Anion Gap 7 mmol/L (6-16); Blood Urea Nitrogen 12 mg/dL (8-24); Bun/Creatinine Ratio 3.9 (12.0-20.0); CO2, Blood 27 mmol/L (21-32); Chloride, Blood 104 mmol/L (98-108); Creatinine, Blood 3.06 mg/dL (0.40-1.00); Glomerular Filtration Rate 16 (60-); Glucose, Blood 291 mg/dL (70-99); Potassium, Blood 3.2 mmol/L (3.5-5.5); Sodium, Blood 138 mmol/L (136-145)
--- NOTE | 2019-08-18 12:05 | NUR ---
08/18/2019 Patient gave this nursing support worker permission to assist in care tomorrow 08/19/2019.
--- NOTE | 2019-08-18 14:48 | NUR ---
DIALYSIS-PD PT'S SOLUTION IMPROVED SLIGHTLY CLOUDY. TX DC'ED PER PROTOCAL. SITE CLEAR. ID [id number] ML. UF [id number] ML.
--- NOTE | 2019-08-18 15:37 | NUR ---
08/18/19 1537 SONIYA TANG History, Chart, Medications and Allergies reviewed before start of procedure.3-LEAD EKG REVIEWED WITH PHYSICIAN PRIOR TO START OF PROCEDURE.O2 VIA N/C INTACT THROUGHOUT SEDATION/PROCEDURE. MONITOR INTACT WITH CONTINUOUS PULSE OXIMETRY AND INTERMITTENT BP.MAC WITH DR. NEELY.
--- NOTE | 2019-08-18 16:41 | NUR ---
PT RETURNED FROM EGD PT RETURNED FROM EGD. PT VSS. ALERT & ORIENTED. AT BEDSIDE. DENIES NEED AT THIS TIME.
--- NOTE | 2019-08-18 18:26 | NUR ---
SHIFT SUMMARY PT HAD EGD DONE TODAY. BIOPSIES AND DILATION COMPLETED DURING PROCEDURE. PT ADVANCED TO FULL LIQUID FOR DINNER. PROTONIX CHANGED TO PO FORM. PT COMPLETED DIALYSIS EARLY THIS AM. NO OTHER CHANGES IN ASSESSMENT AT THIS TIME. VSS. WILL CONTNUE TO MONITOR UNTIL TURNOVER IS COMPLETE.
--- NOTE | 2019-08-18 20:51 | NUR ---
DIALYSIS-PD COLLECTED MEDICATED DIANEAL BAGS FROM PHARMACY. PRIMED MACHINE. CONNECTED PT TO TX PER PROTOCAL. PT C/O BACK, GIVEN PAIN NOT LONG AGO. PULLED UP IN BED. SPOKEN TO RN ABOUT ALARMS.GAVE HER MY CELL NUMBER.
--- NOTE | 2019-08-19 04:45 | NUR ---
SHIFT SUMMARY ADMITTED FOR PERITONITIS. FULL CODE. PERITONEAL DIALYSIS THROUGHOUT SHIFT, NO ALARMS SOUNDED - TOREY IS FOLLOWING. PT TOLERATED DIALYSIS WELL. POWERGLIDE IN JESSIE DRAWS WELL FOR LABS. FISTULA IN LFT FOREARM - NO BP'S OR LABS IN LEFT ARM. EGD PERFORMED YESTERDAY, DR LOMELI ROUNDED ON PT TO SHOW HER A LARGE DIVERTICULI WITH A SIGNIFICANT AMOUNT OF FOOD MATTER/BILE EXPELLED FROM DIVERTICULI POCKET DURING EGD. HE INFORMED HER OF THE DILATION HE PERFORMED WELL. RA, FULL LIQUID DIET (APPETITE IS STILL POOR), A&O X4, ACHS , LOW SS. LUNGS ARE CLEAR. TELEMETRY IS MONITORING: TACH @ 100 BPM. 1 ASSIST W/FWW. LIVES W/. MILD NAUSEA ONE TIME DURING SHIFT. HX: CKD, CAD, DM2, CABG, CVA, DIVERTICULITIS.
[2019-08-19 05:39] LABS: BASOPHILS ABSOLUTE AUTO 0.03 K/mm3 (0.00-0.23); BASOPHILS PERCENT AUTO 0 % (0-2); EOSINOPHILS ABSOLUTE AUTO 0.56 K/mm3 (0.00-0.68); EOSINOPHILS PERCENT AUTO 4 % (0-6); Hematocrit 30.2 % (33.0-51.0); Hemoglobin 9.3 g/dL (11.5-16.0); IMMATURE GRAN ABSOLUTE AUTO 0.06 K/mm3 (0.00-0.10); IMMATURE GRAN PERCENT AUTO 0 % (0-1); LYMPHOCYTES ABSOLUTE AUTO 3.01 K/mm3 (0.84-5.20); LYMPHOCYTES PERCENT AUTO 22 % (21-46); MONOCYTES ABSOLUTE AUTO 0.88 K/mm3 (0.16-1.47); MONOCYTES PERCENT AUTO 7 % (4-13); Mean Corpuscular HGB 27.9 pg (26.0-34.0); Mean Corpuscular HGB Conc 30.8 g/dL (31.5-36.5); Mean Corpuscular Volume 91 fL (80-100); Mean Platelet Volume 10.2 fL (9.1-12.4); NEUTROPHILS ABSOLUTE AUTO 8.98 K/mm3 (1.96-9.15); NEUTROPHILS PERCENT AUTO 67 % (41-73); Platelet Count 346 K/mm3 (150-400); RDW Coefficient Variation 15.8 % (11.7-14.2); RDW Standard Deviation 52.1 fL (35.1-46.3); Red Blood Cell Count 3.33 M/mm3 (3.80-5.20); White Blood Cell Count 13.52 K/mm3 (4.00-11.30)
[2019-08-19 06:05] LABS: Magnesium, Blood 1.2 mg/dL (1.6-2.4)
[2019-08-19 06:08] LABS: Albumin, Blood 1.3 g/dL (3.4-5.0); Albumin/Globulin Ratio 0.4 (0.8-1.8); Alk Phos 77 U/L (50-136); Anion Gap 6 mmol/L (6-16); Aspartate Aminotrans (AST/SGOT 8 U/L (12-37); Bilirubin, Total 0.5 mg/dL (0.1-1.0); Blood Urea Nitrogen 14 mg/dL (8-24); Bun/Creatinine Ratio 4.6 (12.0-20.0); CO2, Blood 26 mmol/L (21-32); Calcium, Blood 6.5 mg/dL (8.5-10.1); Chloride, Blood 105 mmol/L (98-108); Creatinine, Blood 3.06 mg/dL (0.40-1.00); Globulin, Blood 3.7 g/dL (2.2-4.0); Glomerular Filtration Rate 16 (60-); Glucose, Blood 239 mg/dL (70-99); Phosphorus, Blood 1.9 mg/dL (2.5-4.9); Potassium, Blood 2.9 mmol/L (3.5-5.5); Sodium, Blood 137 mmol/L (136-145)
[2019-08-19 06:22] LABS: Alanine Aminotransfer (ALT/SGP <6 U/L (12-78)
--- NOTE | 2019-08-19 07:37 | NUR ---
POTASSIUM 2.9 PT AM POTASSIUM IS 2.9. DR. JACOBS NOTIFIED. STATES HE WILL PLACE ORDERS. WILL CONTINUE TO MONITOR.
--- NOTE | 2019-08-19 17:31 | NUR ---
SHIFT SUMMARY PT STATES SHE IS "FEELING BETTER". DENIES NAUSEA & VOMITING THIS SHIFT. MEDIATED PRIOR TO MEALS. PT TO HAD PD TONIGHT. PT UP TO CHAIR TWICE THIS SHIFT. GOALS TO INCREASE APPETITE AND MOBILITY. PT CONTINUES TO HAVE A POOR APPETITE. NE INSULIN GIVEN THIS SHIFT DUE TO POOR APPETITE. NO OTHER CHANGES IN ASSESSMENT AT THIS TIME. VSS. WILL CONTINUE TO MONITOR UNTIL TURNOVER IS COMPLETE.
--- NOTE | 2019-08-19 21:13 | NUR ---
DIALYSIS-PD THIS AM I DISCONNECTED THE PT FROM HER PD PER PROTOCAL. ID [id number]. UF [id number]. AFFLUENT LOOKED BETTER, LESS CLOUDY. PT LOOKED BETTER THAN THE NIGHT BEFORE. 2014 CONNECTED PT TO THE SAME RX LAST NIGHT PER PROTOCAL. HAD ANCEF IN THE LAST FILL. DRESSING CHANGE DONE PER PROTOCAL. SITE HAD NO REDNESS THIS TIME. NO DRAINAGE. WNL. STILL VERY JUMPY WHEN HER ABD TOUCHED, SAYING OUCH. TALKED TO THE RN IN CHARGE OF PT TONIGHT ABOUT ALARMS.
--- NOTE | 2019-08-20 04:08 | NUR ---
C APPLICATION DEVELOPER SUMMARY PT DROWSY AT BEGINNING OF SHIFT. EASILY AROUSABLE BUT ALSO FALLS BACK TO ASLEEP EASILY. PT DENIED MEDS AT BEGINNING OF SHIFT. SLEPT WELL THROUGHOUT THE NIGHT. CALLS APPROPRIATELY AND SEEMED MORE AWAKE WHEN SHE USED THE CALL LIGHT. SHE WAS ABLE TO CONVERSE WITH ME MORE WHEN SHE WOKE UP. NO COMPLAINTS OF PAIN, NAUSEA OR DIZZINESS. VSS, NO ACUTE CHANGES. WILL CONTINUE TO MONITOR.
[2019-08-20 06:15] LABS: BASOPHILS ABSOLUTE AUTO 0.03 K/mm3 (0.00-0.23); BASOPHILS PERCENT AUTO 0 % (0-2); EOSINOPHILS ABSOLUTE AUTO 0.51 K/mm3 (0.00-0.68); EOSINOPHILS PERCENT AUTO 5 % (0-6); Hematocrit 29.1 % (33.0-51.0); IMMATURE GRAN ABSOLUTE AUTO 0.04 K/mm3 (0.00-0.10); IMMATURE GRAN PERCENT AUTO 0 % (0-1); LYMPHOCYTES ABSOLUTE AUTO 2.72 K/mm3 (0.84-5.20); LYMPHOCYTES PERCENT AUTO 25 % (21-46); MONOCYTES ABSOLUTE AUTO 0.72 K/mm3 (0.16-1.47); MONOCYTES PERCENT AUTO 7 % (4-13); Mean Corpuscular HGB Conc 30.9 g/dL (31.5-36.5); Mean Corpuscular Volume 91 fL (80-100); NEUTROPHILS ABSOLUTE AUTO 6.89 K/mm3 (1.96-9.15); NEUTROPHILS PERCENT AUTO 63 % (41-73); Platelet Count 286 K/mm3 (150-400); RDW Coefficient Variation 15.7 % (11.7-14.2); RDW Standard Deviation 51.9 fL (35.1-46.3); Red Blood Cell Count 3.21 M/mm3 (3.80-5.20); White Blood Cell Count 10.91 K/mm3 (4.00-11.30)
[2019-08-20 06:29] LABS: Albumin, Blood 1.2 g/dL (3.4-5.0); Anion Gap 1 mmol/L (6-16); Blood Urea Nitrogen 14 mg/dL (8-24); Bun/Creatinine Ratio 4.8 (12.0-20.0); CO2, Blood 29 mmol/L (21-32); Calcium, Blood 6.7 mg/dL (8.5-10.1); Chloride, Blood 106 mmol/L (98-108); Creatinine, Blood 2.93 mg/dL (0.40-1.00); Glomerular Filtration Rate 17 (60-); Glucose, Blood 258 mg/dL (70-99); Magnesium, Blood 1.4 mg/dL (1.6-2.4); Potassium, Blood 3.3 mmol/L (3.5-5.5); Sodium, Blood 136 mmol/L (136-145)
--- NOTE | 2019-08-20 07:13 | NUR ---
Pt. gave student approval for care at 0710 08/20/2019 for 08/20/2019.
--- NOTE | 2019-08-20 18:31 | NUR ---
SHIFT SUMMARY PT UP TO CHAIR FOR ALL MEALS TODAY. MINIMAL ASSIST AMBULATION TO BATHROOM. PD AT NIGHT. PG DRESSING CHANGED. PT RECIEVED KCL, MAG, AND K PHOS IV THIS SHIFT. NO OTHER CHANGES IN ASSESSMENT AT THIS TIME. VSS. WILL CONTINUE TO MONITOR UNTIL TURNOVER IS COMPLETE.
--- NOTE | 2019-08-20 20:11 | NUR ---
DIALYSIS-PD THIS AM AT 0800 TOOK SUPPLIES TO ROOM TO DC PT FROM TX. PT DC'ED PER PROTOCAL. SITE CLEAR FLUID CLEAR. ID. [id number]. UF [id number]. NO C/O FROM PT. 1999 PT CONNECTED TO PD TX. PT STATES SHE IS GOING HOME TOMORROW. UPSET THAT SHE MAY HAVE TO GO ON HD FOR A SHORT TIME WHILE GETS TRAINED. STILL GETTING ANCEF IN LAST FILL.
--- NOTE | 2019-08-21 04:42 | NUR ---
SHIFT SUMMARY: TACHYCARDIC AT 103-104 TONIGHT. A/OX3. MAKES NEEDS KNOWN. RECEIVED PERITONEAL DIALYSIS THROUGH THE NIGHT. DRESSING AT ABDOMINAL PORT SITE C/D/I. NO ERYTHEMA VISIBLE. ABD TENDER IN THE MIDDLE AND LLQ AND LUQ WITH PALPATION. BT HYPOACTIVE. LARGE ECCHYMOTIC AREAS TO LLQ AND RLQ. PT DENIES N/V. NO ACUTE CHANGES. BED LOW, CALL BUTTON IN REACH.
[2019-08-21 06:08] LABS: Bun/Creatinine Ratio 4.2 (12.0-20.0); Calcium, Blood 6.9 mg/dL (8.5-10.1); Creatinine, Blood 2.86 mg/dL (0.40-1.00); Potassium, Blood 3.5 mmol/L (3.5-5.5)
--- NOTE | 2019-08-21 12:26 | NUR ---
SPOKE WITH [facility] THIS AM AND THEY REPORTED THEY HAVE A CHAIR TIME FOR 6:30AM TOMORROW. PT NOTIFIED OF THIS AND REPORTS SHE IS NOT A MORNING PERSON AND LIVES IN [place] AND THAT WILL NOT WORK FOR HER. I CALLED BACK AND SPOKE WITH [facility] AND THEY REPORT THAT IS THE ONLY AVAILABLE TIME TOMORROW AND THEY DO NOT HAVE ANY TIMES FOR SUNDAY AVAILABLE. AGAIN SPOKE WITH PT REGARDING THIS AND THE NEED FOR HER TO GO TO THE APPT AND SHE ONCE AGAIN REPORTS SHE WILL NOT BE GOING TOMORROW AM AND IT WILL HAVE TO BE ON SUNDAY. CALLED AND UPDATED DR CARNES.
[2019-08-21] MEDS ORDERED: ACET325 PO (13:55)
[2019-08-21] MEDS ORDERED: TUMS500 MG PO (13:56)
[2019-08-21] MEDS ORDERED: BASAGLAR K100 UNIT/1 SC (13:57)
[2019-08-21] MEDS ORDERED: HUMALOG KW200 UNIT/1 SC (13:58)
[2019-08-21] MEDS ORDERED: MAGNESIUM OXID500 MG PO (13:59)
[2019-08-21] MEDS ORDERED: PANT40 PO (14:00)
[2019-08-21] MEDS ORDERED: MIRALAX17 GM PO (14:00)
[2019-08-21] MEDS ORDERED: CALC.25 PO (14:01)
[2019-08-21] MEDS ORDERED: VITAMIN B COMPLEX PO (14:05)
--- NOTE | 2019-08-21 15:10 | NUR ---
DISCHARGE INSTRUCTIONS REVIEWED WITH PT AND FRIEND. PG DC'D INTACT. RX FAXED TO PHARMACY. PT AGAIN SPOKE TO IN DEPT BY MYSELF AND MIXER OPERATOR HELPER HOT METAL REGARDING DIALYSIS TOMORROW AM, PT CONT TO REPORT ITS TO EARLY AND WONT BE ABLE TO MAKE IT. PT DC'D HOME WITH FRIEND, ESCORTED OUT VIA W/C AT 1510.
== END 2019-08-21 15:10 | disposition home health service (06) | DRG 871 ==
LOC: ER 17:38 → MEDS 22:03 → PCU 22:03 → MEDS 08-14 15:45
PROVIDERS: Emergency Medicine; Family Medicine; Internal Medicine Gastroenterology; Internal Medicine Nephrology; ADMIT Internal Medicine
PROC: 0DD68ZX Extraction of Stomach, Via Natural or Artificial Opening Endoscopic, Diagnostic (ICD-10-PCS; 2019-08-18)
PROC: 0D768ZZ Dilation of Stomach, Via Natural or Artificial Opening Endoscopic (ICD-10-PCS; principal; 2019-08-18 14:30)
PROC: 0DD98ZX Extraction of Duodenum, Via Natural or Artificial Opening Endoscopic, Diagnostic (ICD-10-PCS; 2019-08-18 14:30)
DX: A41.50 Gram-negative sepsis, unspecified (principal); N18.6 End stage renal disease; N25.81 Secondary hyperparathyroidism of renal origin; N17.9 Acute kidney failure, unspecified; N39.0 Urinary tract infection, site not specified; K31.1 Adult hypertrophic pyloric stenosis; I13.2 Hypertensive heart and chronic kidney disease with heart failure and with stage 5 chronic kidney disease, or end stage renal disease; Z79.84 Long term (current) use of oral hypoglycemic drugs; Z79.82 Long term (current) use of aspirin; I25.10 Atherosclerotic heart disease of native coronary artery without angina pectoris; Z95.1 Presence of aortocoronary bypass graft; E11.22 Type 2 diabetes mellitus with diabetic chronic kidney disease; E83.42 Hypomagnesemia; E87.6 Hypokalemia; Z86.73 Personal history of transient ischemic attack (TIA), and cerebral infarction without residual deficits; E83.39 Other disorders of phosphorus metabolism; D63.1 Anemia in chronic kidney disease; E87.8 Other disorders of electrolyte and fluid balance, not elsewhere classified; K76.0 Fatty (change of) liver, not elsewhere classified; E11.42 Type 2 diabetes mellitus with diabetic polyneuropathy; Z99.2 Dependence on renal dialysis; E86.9 Volume depletion, unspecified; B96.89 Other specified bacterial agents as the cause of diseases classified elsewhere; K44.9 Diaphragmatic hernia without obstruction or gangrene
CPT/HCPCS: 36415; 70450; 74018; 74022; 74160; 74176; 76705; 80048; 80053; 80069; 80202; 81001; 82105; 82150; 82947; 83605; 83690; 83735; 84100; 84484; 85014; 85018; 85025; 87040; 87070; 87075; 87077; 87086; 87186; 87205; 88305; 88341; 88342; 89051; 93005; 93010; 96361; 96365; 96375; 97110; 97116; 97163; 97166; 97530; 97535; 99285-25; A9270; A9270-GY; C1726; C1751; C9113; J0690; J0692; J0696; J0713; J0881; J1644; J1650; J2370; J2405; J2704; J2765; J3010; J3370; J3475; J3480; J7030; J7050; J7060; P9612; Q9967

== ENCOUNTER 2019-08-29 11:00 | Emergency (ER) | payer OTHER ==
[~2019-08-29] VITALS: Ht 157.5 cm; Wt 56.7 kg
[~2019-08-29 11:00] MED LIST changes: +ACET325 PO; +BASAGLAR K100 UNIT/1 SC; +CALC.25 PO; +HUMALOG KW200 UNIT/1 SC; +MAGNESIUM OXID500 MG PO; +MIRALAX17 GM PO; +PANT40 PO; +SPIR25 PO; +TUMS500 MG PO; +VITAMIN B COMPLEX PO
[2019-08-29 12:12] LABS: BASOPHILS ABSOLUTE AUTO 0.08 K/mm3 (0.00-0.23); BASOPHILS PERCENT AUTO 1 % (0-2); EOSINOPHILS PERCENT AUTO 4 % (0-6); Hematocrit 34.4 % (33.0-51.0); Hemoglobin 10.6 g/dL (11.5-16.0); IMMATURE GRAN ABSOLUTE AUTO 0.01 K/mm3 (0.00-0.10); IMMATURE GRAN PERCENT AUTO 0 % (0-1); LYMPHOCYTES ABSOLUTE AUTO 2.97 K/mm3 (0.84-5.20); LYMPHOCYTES PERCENT AUTO 38 % (21-46); MONOCYTES ABSOLUTE AUTO 0.31 K/mm3 (0.16-1.47); MONOCYTES PERCENT AUTO 4 % (4-13); Mean Corpuscular HGB 28.5 pg (26.0-34.0); Mean Corpuscular HGB Conc 30.8 g/dL (31.5-36.5); Mean Corpuscular Volume 93 fL (80-100); Mean Platelet Volume 9.5 fL (9.1-12.4); NEUTROPHILS PERCENT AUTO 53 % (41-73); Platelet Count 322 K/mm3 (150-400); RDW Coefficient Variation 16.1 % (11.7-14.2); RDW Standard Deviation 54.6 fL (35.1-46.3); Red Blood Cell Count 3.72 M/mm3 (3.80-5.20); White Blood Cell Count 7.77 K/mm3 (4.00-11.30)
[2019-08-29 12:32] LABS: Alanine Aminotransfer (ALT/SGP 10 U/L (12-78); Albumin, Blood 2.1 g/dL (3.4-5.0); Albumin/Globulin Ratio 0.4 (0.8-1.8); Alk Phos 93 U/L (50-136); Anion Gap 6 mmol/L (6-16); Aspartate Aminotrans (AST/SGOT 13 U/L (12-37); Bilirubin, Total 0.3 mg/dL (0.1-1.0); Blood Urea Nitrogen 8 mg/dL (8-24); Bun/Creatinine Ratio 2.9 (12.0-20.0); CO2, Blood 28 mmol/L (21-32); Calcium, Blood 6.8 mg/dL (8.5-10.1); Chloride, Blood 103 mmol/L (98-108); Creatinine, Blood 2.77 mg/dL (0.40-1.00); Globulin, Blood 4.9 g/dL (2.2-4.0); Glomerular Filtration Rate 18 (60-); Glucose, Blood 202 mg/dL (70-99); Potassium, Blood 3.9 mmol/L (3.5-5.5); Sodium, Blood 137 mmol/L (136-145); Troponin I <0.015 ng/mL (0.000-0.040)
[2019-08-29 14:31] LABS: Source, Urine Clean Catch
[2019-08-29 14:41] LABS: Bilirubin, Urine Neg (Neg); Blood, Urine 1+ (Neg); Glucose Qualitative, Urine 4+ (Neg); Ketones, Urine Neg (Neg); Leukocyte Esterase, Urine Neg (Neg); Nitrite, Urine Neg (Neg); Protein, Urine 2+ (Neg); Specific Gravity, Urine 1.015 (1.003-1.022); Urobilinogen, Urine NORM (Normal)
[2019-08-29 14:54] LABS: Appearance, Urine Clear (Clear); Color, Urine Yellow (P-Yellow)
[2019-08-29 14:55] LABS: Bacteria Few /hpf; Squamous Epithelial Cells Few /hpf (Few); White Blood Cells, Urine 0-2 /hpf (0-5)
== END 2019-08-29 16:06 | disposition home or self-care (01) ==
LOC: ER 11:00
PROVIDERS: Emergency Medicine
DX: I95.9 Hypotension, unspecified (principal); R53.1 Weakness; E11.22 Type 2 diabetes mellitus with diabetic chronic kidney disease; N17.9 Acute kidney failure, unspecified; Z88.1 Allergy status to other antibiotic agents; Z79.899 Other long term (current) drug therapy; Z79.82 Long term (current) use of aspirin; Z79.4 Long term (current) use of insulin; Z99.2 Dependence on renal dialysis
CPT/HCPCS: 36415; 71046; 80053; 81001; 83880; 84484; 85025; 93005; 93010; 96360; 99285-25; J7030

== ENCOUNTER 2019-09-12 10:07 | Inpatient (IN) | payer OTHER ==
[~2019-09-12] VITALS: Ht 154.9 cm; Wt 59.9 kg
[~2019-09-12 10:07] MED LIST changes: -ASPI81CH PO; -ATOR10 PO; +ATOR40TA PO; +Aspir 8181 MG PO
[2019-09-12 11:58] LABS: BASOPHILS ABSOLUTE AUTO 0.06 K/mm3 (0.00-0.23); BASOPHILS PERCENT AUTO 1 % (0-2); EOSINOPHILS ABSOLUTE AUTO 0.06 K/mm3 (0.00-0.68); EOSINOPHILS PERCENT AUTO 1 % (0-6); Hemoglobin 12.3 g/dL (11.5-16.0); IMMATURE GRAN ABSOLUTE AUTO 0.05 K/mm3 (0.00-0.10); IMMATURE GRAN PERCENT AUTO 0 % (0-1); LYMPHOCYTES ABSOLUTE AUTO 1.98 K/mm3 (0.84-5.20); LYMPHOCYTES PERCENT AUTO 16 % (21-46); MONOCYTES ABSOLUTE AUTO 0.43 K/mm3 (0.16-1.47); MONOCYTES PERCENT AUTO 4 % (4-13); Mean Corpuscular HGB 28.8 pg (26.0-34.0); Mean Corpuscular HGB Conc 32.4 g/dL (31.5-36.5); Mean Corpuscular Volume 89 fL (80-100); Mean Platelet Volume 11.1 fL (9.1-12.4); NEUTROPHILS ABSOLUTE AUTO 9.74 K/mm3 (1.96-9.15); NEUTROPHILS PERCENT AUTO 79 % (41-73); Platelet Count 254 K/mm3 (150-400); RDW Coefficient Variation 14.5 % (11.7-14.2); RDW Standard Deviation 46.7 fL (35.1-46.3); Red Blood Cell Count 4.27 M/mm3 (3.80-5.20); White Blood Cell Count 12.32 K/mm3 (4.00-11.30)
[2019-09-12 12:20] LABS: Albumin, Blood 2.4 g/dL (3.4-5.0); Albumin/Globulin Ratio 0.5 (0.8-1.8); Bilirubin, Total 0.4 mg/dL (0.1-1.0); Bun/Creatinine Ratio 4.9 (12.0-20.0); Calcium, Blood 8.1 mg/dL (8.5-10.1); Creatinine, Blood 2.46 mg/dL (0.40-1.00); Globulin, Blood 4.4 g/dL (2.2-4.0); Potassium, Blood 3.2 mmol/L (3.5-5.5); Total Protein, Blood 6.8 g/dL (6.4-8.2)
[2019-09-12] MEDS ORDERED: ACET325 PO (16:23)
[2019-09-12] MEDS ORDERED: [UNRECOGNIZED DRUG - OTHER] PO (16:24)
[2019-09-12] MEDS ORDERED: INSULANPEN SC (16:31)
[2019-09-12] MEDS ORDERED: HUMULIN N100 UNIT/1 SC (16:33)
--- NOTE | 2019-09-12 19:30 | NUR ---
BEDSIDE REPORT REC'D FROM MIGDALIA VALLADARES. PT LYING IN BED WITH SEVERAL BLANKETS ON AND HEAT TURNED UP TO 85. PT STATES SHE IS ALWAYS COLD. SHE REQUESTS ASSISTANCE TO BR DURING REPORT. SLOW SHUFFLING GAIT WITH FWW. IV SL'D X2. WILL RETURN FOR VS AND ASSESSMENT. CALL LIGHT AT BEDSIDE. PT INSTRUCTED TO PULL BR CALL CORD WHEN DONE. MOBILE DEVELOPER OUTSIDE ROOM, NOTIFIED THAT PT IS IN BR.
--- NOTE | 2019-09-12 20:00 | NUR ---
VSS, ASSESSMENT NOTED. PT REQUESTS STOOL SOFTNER AND TYLENOL FOR PAIN. REPORTS THAT FEET "ARE ON FIRE" SHE HAS COVERS OFF AND SOCKS OFF. PM MEDS GIVEN, INCLUDING GABAPENTIN. PT GOT DOWN TO THE LAST BIT COUPLE OF PILLS AND VOMITED 300ML WATERY EMESIS WITH BITS OF DINNER - CARROTS, AND COLACE. NO OTHER PILLS NOTED. ADDITIONAL COLACE ADMINISTERED. ZOFRAN GIVEN. ATTEMPTED FLUSH OF RFA IV, PT YELPED OUT IN PAIN. TISSUE SWELLING NOTED ABOVE IV SITE. RAC IV FLUSHED AND USED TO ADMINISTER ZOFRAN. ARM BOARD OBTAINED IN ORDER TO ASSIST PT TO KEEP HER ARM STRAIGHT DURING ZOFRAN AND NS INFUSION THAT WAS ALSO STARTED. HOWEVER, PRIOR TO STARTING IV MEDS, PT REQUESTED TO TRY AND HAVE A BM SHE WAS FEELING QUITE CONSTIPATED AND HAS ALREADY TRIED THREE TIMES THIS EVENING. PT USED CALL LIGHT WHEN DONE ON BSC. REQUESTED THAT I WIPE HER BECAUSE SHE HAD "ALL THIS STUFF ON HER" I ENCOURAGED HER TO DO SO HERSELF SHE WAS NOT HOOKED UP TO ANYTHING AT THE MOMENT AND WAS FREE TO USE HER HANDS SHE DOES AT HOME. PT HAD A SINGLE SMALL HARD BM. LIGHT YELLOW/RIVAS/BROWN MULTI-COLORED. AND WAS ASSISTED BACK TO BED. IV FLUSHED AND TUBING HOOKED UP, PUMP STARTED. ARM BOARD NOW IN PLACE. COVERS PLACED BACK ON PT EXCEPT FOR FEET. PT STATED HER TOOK HER PURSE HOME THAT CONTAINED HER GLOVES SHE USES FOR HER HANDS THAT OFTEN GET COLD. YELLOW SOCKS PROVIDED FOR HANDS. RFA IV DC'D CATH INTACT. PT C/O OF PAIN WHEN REMOVING TAPE THAT WAS ALREADY MOSTLY OFF. PT STATES SHE IS VERY SENSITIVE TO PAIN AND TEMPERATURES. CALL LIGHT IN REACH. LIGHTS OFF REQUESTED. EXTRA BLANKETS REMOVED REQUESTED. TISSUES AND EMESIS BAG PROVIDED REQUESTED.
--- NOTE | 2019-09-12 22:45 | NUR ---
DVT PROPH PT REFUSES HEPARIN SQ INJECTIONS. SHE STATES LAST TIME SHE WAS HERE HER BELLY WAS "BLACK AND BLUE ALL OVER" AND SHE "ABSOLUTELY DOES NOT EVER WANT THOSE AGAIN" I EXPLAINED THE PURPOSE AND THE ALTERNATIVE - SCD'S - SHE WAS EVEN MORE ADAMENT AND NOT WANTING THOSE EITHER BECAUSE OF PAIN IN HER FEET.
[2019-09-13 05:33] LABS: BASOPHILS ABSOLUTE AUTO 0.05 K/mm3 (0.00-0.23); BASOPHILS PERCENT AUTO 1 % (0-2); EOSINOPHILS PERCENT AUTO 3 % (0-6); Hematocrit 28.9 % (33.0-51.0); Hemoglobin 9.4 g/dL (11.5-16.0); IMMATURE GRAN ABSOLUTE AUTO 0.02 K/mm3 (0.00-0.10); IMMATURE GRAN PERCENT AUTO 0 % (0-1); LYMPHOCYTES ABSOLUTE AUTO 4.24 K/mm3 (0.84-5.20); LYMPHOCYTES PERCENT AUTO 41 % (21-46); MONOCYTES ABSOLUTE AUTO 0.57 K/mm3 (0.16-1.47); MONOCYTES PERCENT AUTO 6 % (4-13); Mean Corpuscular HGB 29.2 pg (26.0-34.0); Mean Corpuscular HGB Conc 32.5 g/dL (31.5-36.5); Mean Corpuscular Volume 90 fL (80-100); Mean Platelet Volume 10.5 fL (9.1-12.4); NEUTROPHILS PERCENT AUTO 50 % (41-73); Platelet Count 208 K/mm3 (150-400); RDW Coefficient Variation 14.6 % (11.7-14.2); RDW Standard Deviation 48.3 fL (35.1-46.3); Red Blood Cell Count 3.22 M/mm3 (3.80-5.20); White Blood Cell Count 10.28 K/mm3 (4.00-11.30)
[2019-09-13 06:06] LABS: Albumin, Blood 1.8 g/dL (3.4-5.0); Albumin/Globulin Ratio 0.5 (0.8-1.8); Bilirubin, Total 0.2 mg/dL (0.1-1.0); Bun/Creatinine Ratio 4.6 (12.0-20.0); Calcium, Blood 6.7 mg/dL (8.5-10.1); Creatinine, Blood 2.59 mg/dL (0.40-1.00); Globulin, Blood 3.5 g/dL (2.2-4.0); Potassium, Blood 2.5 mmol/L (3.5-5.5); Total Protein, Blood 5.3 g/dL (6.4-8.2)
--- NOTE | 2019-09-13 06:29 | NUR ---
SHIFT SUMMARY NO SIG CHANGES SINCE ADMISSION. PT HAS HAD EMESIS X2. ZOFRAN GIVEN BOTH TIMES. PT INDICATES PAIN WITH ANYTHING, INCLUDING REMOVAL OF COBAN. CLAIMS TO BE VERY SENSITIVE. VERIFIED THAT DR LEMA WAS AWARE OF CONSULT THE ORDER WAS NOT UPDATED TO INDICATE NOTIFICATION DURING DAY SHIFT YESTERDAY. HE HAS ENTERED NEW ORDERS THIS MORNING. INF RATE FOR NS HAS BEEN REDUCED TO TOTAL 75ML/HR CURRENTLY RUNNING CONCURRENT WITH [facility]. PT ASKING WHEN SHE WILL HAVE DIALYSIS. THIS IS WHAT PROMPTED A LOOK INTO HER ORDERS TO SEE THE CONSULT ORDER. WILL REVIEW NEW ORDERS WITH ONCOMING RN AND COMMUNICATE DURING BEDSIDE REPORT TO WHEN PT WILL LIKELY HAVE DIALYSIS. NO OTHER CHANGES THIS SHIFT. WILL CONT TO MONITOR, DOCUMENT ANY CHANGES AND WILL REPORT TO DAY SHIFT RN. CALL LIGHT IN PANKAJ. NARESH AT THIS TIME.
--- NOTE | 2019-09-13 09:25 | NUR ---
PERITONEUM DRAINED TO "DRY" PER DR LEMA'S ORDER. APPROXIMATELY 750 ML DARK COLE FLUID OBTAINED. NO FIBRIN OBSERVED. FLUID WAS MINIMALLY CLOUDY. NO ABDOMINAL DISCOMFORT REPORTED BY PATIENT IN ASSOSCIATION WITH THIS PROCEDURE.
--- NOTE | 2019-09-13 11:21 | NUR ---
Report received from Kiara VALLADARES, PCU. No acute issues upon arrival to medical unit noted. No current complaints of pain or discomfort noted. Will continue to monitor for changes.
--- NOTE | 2019-09-13 18:29 | NUR ---
NO ACUTE CHANGES NOTED. PATIENT DOING WELL THIS SHIFT. NO CURRENT COMPLAINTS OF PAIN OR DISCOMFORT NOTED. PATIENT CBG'S HAVE DROPPED INTO THE HIGH 60'S BUT COME BACK UP WITH EACH MEAL. PATIENT STATES SHE FEELS FINE WHEN THEY ARE IN THIS RANGE. PATIENT DOES HAVE SOME NEUROPATHY IN HER FEET THAT SHE STATES IS BOTHERING HER BUT SHE DOESN'T WANT ANYTHING FOR IT AT THIS TIME. NO OTHER ISSUES NOTED AT THIS TIME. WILL CONTINUE TO MONITOR FOR CHANGES.
[2019-09-14 06:14] LABS: BASOPHILS ABSOLUTE AUTO 0.05 K/mm3 (0.00-0.23); BASOPHILS PERCENT AUTO 1 % (0-2); EOSINOPHILS ABSOLUTE AUTO 0.36 K/mm3 (0.00-0.68); EOSINOPHILS PERCENT AUTO 4 % (0-6); Hematocrit 30.2 % (33.0-51.0); Hemoglobin 9.7 g/dL (11.5-16.0); IMMATURE GRAN ABSOLUTE AUTO 0.02 K/mm3 (0.00-0.10); IMMATURE GRAN PERCENT AUTO 0 % (0-1); LYMPHOCYTES ABSOLUTE AUTO 3.47 K/mm3 (0.84-5.20); LYMPHOCYTES PERCENT AUTO 40 % (21-46); MONOCYTES ABSOLUTE AUTO 0.51 K/mm3 (0.16-1.47); MONOCYTES PERCENT AUTO 6 % (4-13); Mean Corpuscular HGB 29.2 pg (26.0-34.0); Mean Corpuscular HGB Conc 32.1 g/dL (31.5-36.5); Mean Corpuscular Volume 91 fL (80-100); Mean Platelet Volume 10.7 fL (9.1-12.4); NEUTROPHILS ABSOLUTE AUTO 4.32 K/mm3 (1.96-9.15); NEUTROPHILS PERCENT AUTO 50 % (41-73); Platelet Count 189 K/mm3 (150-400); RDW Coefficient Variation 14.9 % (11.7-14.2); RDW Standard Deviation 49.6 fL (35.1-46.3); Red Blood Cell Count 3.32 M/mm3 (3.80-5.20); White Blood Cell Count 8.73 K/mm3 (4.00-11.30)
[2019-09-14 06:44] LABS: Albumin, Blood 1.7 g/dL (3.4-5.0); Albumin/Globulin Ratio 0.5 (0.8-1.8); Bilirubin, Total 0.2 mg/dL (0.1-1.0); Bun/Creatinine Ratio 3.9 (12.0-20.0); Calcium, Blood 6.5 mg/dL (8.5-10.1); Creatinine, Blood 2.8 mg/dL (0.40-1.00); Globulin, Blood 3.3 g/dL (2.2-4.0); Magnesium, Blood 1.3 mg/dL (1.6-2.4); Phosphorus, Blood 1.4 mg/dL (2.5-4.9); Potassium, Blood 3.1 mmol/L (3.5-5.5)
--- NOTE | 2019-09-14 10:57 | NUR ---
PT ONLY ABLE TO TOLERATE APROX 10 MIN OF POTASSIUM AND THEN REFUSED. IV ALSO WENT BAD. SPOKE WITH DR BLACKBURN WHO REPORTED OK TO CHANGE IV ANTIBIOTICS TO ORAL AND OK TO LEAVE IV OUT IF OK WITH DR LEMA. SPOKE WITH DR LEMA WHO REPORTED OK TO GIVE POTASSIUM 20MEQ PO BUT STILL WANTED PT TO RECEIVE IV MAGNESIUM WELL SODIUM PHOS THAT CAN BE GIVEN AT THE LAST 2 HOU[address] OF DIALYSIS. PER DR LEMA PT IS NOT READY TO DISCHARGE HOME. SPOKE WITH [facility] IN DIALYSIS WHO REPORTS THEY WILL RUN PT TODAY AND GIVE THE MAGNESIUM AND SODIUM PHOS.
--- NOTE | 2019-09-14 13:13 | NUR ---
PT TO DIALYSIS. DR LEMA AND DR BLACKBURN IN TO SEE PT PRIOR AND PT TO DISCHARGE HOME AFTER DIALYSIS.
[2019-09-14] MEDS ORDERED: Amox Tr-K Clv1 EAC1 PO (14:19)
[2019-09-14] MEDS ORDERED: Florastor250 MG PO (14:19)
--- NOTE | 2019-09-14 15:58 | NUR ---
PT BACK FROM DIALYSIS, IV MAG AND SODIUM PHOS GIVEN WITH DIALYSIS. DISCHARGE INSTRUCTIONS REVIEWED WITH PT. IV PREVIOUSLY DC'D. RX FAXED TO [facility]. DRESSING OVER PD CATH CHANGED PRIOR TO DISCHARGE. PT DC'D HOME WITH SPOUSE AT [id number], ESCORTED OUT VIA W/C.
== END 2019-09-14 16:00 | disposition home or self-care (01) | DRG 811 ==
LOC: ER 10:07 → PCU 14:16 → MEDS 09-13 11:10 → ENPENDDIS 09-14 13:31 → MEDS 09-14 16:00
PROVIDERS: Family Medicine; Internal Medicine Nephrology; Physician Assistant; ADMIT Hospitalist
DX: T80.89XA Other complications following infusion, transfusion and therapeutic injection, initial encounter (principal); K65.9 Peritonitis, unspecified; N18.6 End stage renal disease; I12.0 Hypertensive chronic kidney disease with stage 5 chronic kidney disease or end stage renal disease; E87.6 Hypokalemia; E11.22 Type 2 diabetes mellitus with diabetic chronic kidney disease; Z99.2 Dependence on renal dialysis; Z79.4 Long term (current) use of insulin; D63.1 Anemia in chronic kidney disease; Z86.73 Personal history of transient ischemic attack (TIA), and cerebral infarction without residual deficits; I25.10 Atherosclerotic heart disease of native coronary artery without angina pectoris; K44.9 Diaphragmatic hernia without obstruction or gangrene; E11.40 Type 2 diabetes mellitus with diabetic neuropathy, unspecified; D72.829 Elevated white blood cell count, unspecified; E78.2 Mixed hyperlipidemia; E83.42 Hypomagnesemia; E83.39 Other disorders of phosphorus metabolism
CPT/HCPCS: 36415; 71046; 80053; 82947; 83036; 83605; 83735; 84100; 85025; 87040; 93005; 93010; 96361; 96365; 99285-25; A9270; A9270-GY; J1815; J2270; J2405; J2543; J3475; J3480; J7030; J7050; J7060

== ENCOUNTER → 2019-11-05 | Outpatient (CLI) | payer OTHER ==
[~2019-11-05] MED LIST changes: +Amox Tr-K Clv1 EAC1 PO; +Florastor250 MG PO; +HUMULIN N100 UNIT/1 SC; +INSULANPEN SC; +[UNRECOGNIZED DRUG - OTHER] PO
== END ==
LOC: LAB EV 15:10 → LAB SHORT 15:10
DX: R30.9 Painful micturition, unspecified (principal)
CPT/HCPCS: 87077; 87086; 87186